=== PATIENT | female | born 1975 | race Caucasian/White ===

== ENCOUNTER 2016-07-29 18:57 | Emergency (ER) | payer OTHER ==
--- NOTE | 2016-07-29 20:07 | ED NURSING NOTES ---
Clinical Report - Nurses [facility] [address] [place] [address] 07/29/2016 19:00 Patient: NERY VALLE [facility]#: [id number] TRIAGE Triage time 19:Jul 29 2016. Acuity: LEVEL 4. Chief Complaint: LEFT UPPER EXTREMITY PAIN. Location of symptoms- (pt c/o pain to left ring finger and left elbow for a month, no known injury). Alert. No acute distress. ( reports pain "worse than labor"). SEPSIS SCREEN: Sepsis Screen: negative. Negative (no infection suspected/documented). ELSA COMA SCORE: Elsa Coma Scale: 15- eyes open spontaneously (4); best verbal response- oriented x 4 (5); best motor response- obeys commands (6). --19:16 Rajat Chi R.N. 19:07 07/29/16. BP: 123/69. HR: 71. RR: 17. O2 saturation: 100%. Temp: 97.9 F. Pain level now 01/30. --19:16 Rajat Chi R.N. Weight: 91.6 kg stated. Height/Length: 66 inches Per Patient. BMI: 32.6. --19:12 Rajat Chi R.N. Medications None. --19:09 Rajat Chi R.N. Allergies Clindamycin. --19:09 Rajat Chi R.N. History Arrived by private vehicle. Historian: patient. Accompanied by family. No injury occurred. Provoking / relieving factors: worsened by movement; relieved by rest. Treatment RN SPINE: None. ("I didn't know what to take"). PAST MEDICAL HX: Tetanus status: up-to-date. Immunizations: up-to-date. Last normal menstrual period- 2 weeks ago. SOCIAL HX: Never smoker. Alcohol use. (last drink 13 years ago). No infectious disease exposure. SELF HARM ASSESSMENT: A self harm assessment was performed. The patient answered "no" to the question "Have you recently felt down, depressed, or hopeless?", "Have you noticed less interest or pleasure in doing things?", "Do you have thoughts of harming or killing yourself?", "Are you here because you tried to hurt yourself?", "Have you ever tried to hurt yourself before today?", "Have you recently had thoughts about harming or killing others?" and "Do you have any dangerous items in your possession?". FALL RISK ASSESSMENT: Fall risk assessment completed. No fall risk identified. NUTRITIONAL RISK ASSESSMENT: The nutritional risk assessment revealed no deficiencies. FUNCTIONAL ASSESSMENT: Functional assessment: no impairments noted. LEARNING NEEDS ASSESSMENT: The learning needs assessment revealed no barriers. SKIN INTEGRITY ASSESSMENT: Skin integrity risk assessment completed. No skin integrity risk identified. --19:16 Rajat Chi R.N. PROBLEMS: Bronchitis. Palpitations. Vertigo. Asthma. --19:10 Rajat Chi R.N. ADDITIONAL SURGERIES: Abdominal Hernia Repair. Bilateral feet surgery . Bunion surgery. Cholecystectomy. . Dilatation & Curettage. Fracture Repair. Hernia Repair. Umbilical Hernia Repair. --19:15 Rajat Chi R.N. Interventions ID and allergy band on patient. To treatment room. --19:16 Rajat Chi R.N. PHYSICAL ASSESSMENT Ambulatory to room. Patient gowned. GENERAL / NEURO / PSYCH: Oriented X 4. Alert. Appears in no acute distress. EXTREMITIES: Neuro-vascular status intact to the extremity. No upper extremity edema. Left elbow: tenderness (pain x 1 month). Left hand: (pain to left ring finger, no known injury). SKIN: Skin intact. Skin is warm and dry. --19:18 Rajat Chi R.N. NURSING PROGRESS NOTES Patient gowned. Reassurance given. Two patient identifiers checked. Call light placed in reach. Side rails up x 1. Bed placed in lowest position. Brakes of bed on. --19:18 Rajat Chi R.N. ( MD with pt, waiting poc). --19:40 Rajat Chi R.N. Aluminum-foam finger splint applied to left ring finger by nurse (sling to left arm per MD). Splint applied. Sling applied to left arm by nurse; distal pulses intact and sensation intact. --20:07 Rajat Chi R.N. DISPOSITION / DISCHARGE Condition at departure: unchanged. The goals identified in the patient's plan of care were met. ( splint and sling in place,. pt educated on monitoring cap refill to fingers on affected hand.). No learning barriers present. Discharge instructions provided and reviewed with the patient. Reviewed medication(s) side effects and course information. Prescription(s) given to the patient. Reviewed splint care instructions. Activity restrictions reviewed (per MD). Patient verbalized understanding. Written instructions provided in Macedonian. The patient was discharged by the physician. She was discharged home and accompanied by family. She left the Emergency Department ambulatory and via private vehicle. Patient driving. ( pt dc home ambulatory to [facility], cap refill less than 2 seconds on affected hand, rx given). --20:14 Rajat Chi R.N. 20:11 07/29/16. BP: 118/71. HR: 68. RR: 17. O2 saturation: 100%. Temp: 98.0 F. Pain level now 10. --20:14 Rajat Chi R.N. Departure time: 20:12 Jul 29 2016. --20:14 Rajat Chi R.N. Locked/Released at 07/29/2016 20:15 by Rajat Chi R.N.
--- NOTE | 2016-07-29 20:07 | ED CLINICAL REPORT ---
Clinical Report - Physicians/Mid Levels [facility] [address] [place] [address] 07/29/2016 19:00 [id number] Time Seen: 19:06 Jul 29 2016. Arrived- By private vehicle. Historian- patient. CPT: ER phys charges level 3 (#446330). HISTORY OF PRESENT ILLNESS Chief Complaint: UPPER EXTREMITY PAIN and SWELLING. Severity is described as being moderate in degree. It has become recently worse. The quality is noted to be aching and "pain". 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 Symptoms located in the area of the left elbow and left hand. No chest pain, difficulty breathing, sensory loss, motor loss or repetitive hand use at work. She has had swelling, but not had redness. Patient notes the possibility of an injury. Mechanism of injury- (Heavy lifting of disabled child.). Similar symptoms previously: None. Recent medical care: Not recently seen/assessed. REVIEW OF SYSTEMS No fever, chills, headache, sore throat or skin rash. No enlarged lymph nodes, neck pain, abdominal pain, nausea or vomiting. All systems otherwise negative, except as recorded above. PAST HISTORY Bronchitis. Palpitations. Vertigo. Asthma. --19:10 Page-Rajat White R.N. ADDITIONAL SURGERIES: Abdominal Hernia Repair. Bilateral feet surgery . Bunion surgery. Cholecystectomy. . Dilatation & Curettage. Fracture Repair. Hernia Repair. Umbilical Hernia Repair. Medications: None. Allergies: Clindamycin. SOCIAL HISTORY Never smoker. No alcohol use or drug use. ADDITIONAL NOTES The nursing notes have been reviewed. PHYSICAL EXAM Vital Signs: 07/29/2016 19:07 BP: 123/69. HR: 71. RR: 17. O2 saturation: 100%. Temp: 97.9 F. Appearance: Alert. Patient in mild distress. Eyes: Eyes normal inspection. ENT: Pharynx normal. Neck: Normal inspection. Neck supple. CVS: Normal heart rate and rhythm. Respiratory: No respiratory distress. Back: Normal inspection. No tenderness. Skin: Skin intact. Skin warm. Normal skin color. Extremities: Left elbow: moderate tenderness located in the area of the medial epicondyle and medial elbow. Limited ROM secondary to pain (diminished flexion). Neurovascular intact distally. No swelling, abrasion, ecchymosis or deformity. No joint effusion. Left ring finger: moderate tenderness and swelling and medium sized ecchymosis of the PIP joint; limited movement secondary to pain (diminished flexion and extension). Neurovascular intact distally. Extremities otherwise negative. Neuro: Oriented X 3. No motor deficit. No sensory deficit. PROGRESS AND PROCEDURES Patient/family counseled. Disposition: Discharged. Condition: stable. CLINICAL IMPRESSION Left ring finger hematoma Left elbow strain. INSTRUCTIONS Wear simple sling for four days until better. Wear aluminum splint until better. No strenuous activity. Warnings: Further evaluation is necessary. GENERAL WARNINGS: Return or contact your physician immediately if your condition worsens or changes unexpectedly, if not improving as expected, or if other problems arise. Prescription Medications: Hydrocodone/APAP 5mg/325mg: take 1 to 2 orally every 6 hours as needed for pain. Dispense fifteen (15). No refills. OTC Medications: Take naproxen (Aleve) according to label instructions. Available over the counter. Follow-up: Follow up with your doctor in one week. Call for an appointment. Understanding of the discharge instructions verbalized by patient. (Electronically signed by Abdirizak Busch MD 07/30/2016 12:59)
--- NOTE | 2016-07-29 20:07 | ED CLINICAL REPORT ---
Clinical Report - Physicians/Mid Levels [facility] [address] [place] [address] 07/29/2016 19:00 [id number] Time Seen: 19:06 Jul 29 2016. Arrived- By private vehicle. Historian- patient. CPT: ER phys charges level 3 (#532993). HISTORY OF PRESENT ILLNESS Chief Complaint: UPPER EXTREMITY PAIN and SWELLING. Severity is described as being moderate in degree. It has become recently worse. The quality is noted to be aching and "pain". 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 Symptoms located in the area of the left elbow and left hand. No chest pain, difficulty breathing, sensory loss, motor loss or repetitive hand use at work. She has had swelling, but not had redness. Patient notes the possibility of an injury. Mechanism of injury- (Heavy lifting of disabled child.). Similar symptoms previously: None. Recent medical care: Not recently seen/assessed. REVIEW OF SYSTEMS No fever, chills, headache, sore throat or skin rash. No enlarged lymph nodes, neck pain, abdominal pain, nausea or vomiting. All systems otherwise negative, except as recorded above. PAST HISTORY Bronchitis. Palpitations. Vertigo. Asthma. --19:10 Page-Rajat White R.N. ADDITIONAL SURGERIES: Abdominal Hernia Repair. Bilateral feet surgery . Bunion surgery. Cholecystectomy. . Dilatation & Curettage. Fracture Repair. Hernia Repair. Umbilical Hernia Repair. Medications: None. Allergies: Clindamycin. SOCIAL HISTORY Never smoker. No alcohol use or drug use. ADDITIONAL NOTES The nursing notes have been reviewed. PHYSICAL EXAM Vital Signs: 07/29/2016 19:07 BP: 123/69. HR: 71. RR: 17. O2 saturation: 100%. Temp: 97.9 F. Appearance: Alert. Patient in mild distress. Eyes: Eyes normal inspection. ENT: Pharynx normal. Neck: Normal inspection. Neck supple. CVS: Normal heart rate and rhythm. Respiratory: No respiratory distress. Back: Normal inspection. No tenderness. Skin: Skin intact. Skin warm. Normal skin color. Extremities: Left elbow: moderate tenderness located in the area of the medial epicondyle and medial elbow. Limited ROM secondary to pain (diminished flexion). Neurovascular intact distally. No swelling, abrasion, ecchymosis or deformity. No joint effusion. Left ring finger: moderate tenderness and swelling and medium sized ecchymosis of the PIP joint; limited movement secondary to pain (diminished flexion and extension). Neurovascular intact distally. Extremities otherwise negative. Neuro: Oriented X 3. No motor deficit. No sensory deficit. PROGRESS AND PROCEDURES Patient/family counseled. Disposition: Discharged. Condition: stable. CLINICAL IMPRESSION Left ring finger hematoma Left elbow strain. INSTRUCTIONS Wear simple sling for four days until better. Wear aluminum splint until better. No strenuous activity. Warnings: Further evaluation is necessary. GENERAL WARNINGS: Return or contact your physician immediately if your condition worsens or changes unexpectedly, if not improving as expected, or if other problems arise. Prescription Medications: Hydrocodone/APAP 5mg/325mg: take 1 to 2 orally every 6 hours as needed for pain. Dispense fifteen (15). No refills. OTC Medications: Take naproxen (Aleve) according to label instructions. Available over the counter. Follow-up: Follow up with your doctor in one week. Call for an appointment. Understanding of the discharge instructions verbalized by patient. (Electronically signed by Abdirizak Busch MD 07/30/2016 12:59)
--- NOTE | 2016-07-29 20:07 | ED ORDER SUMMARY ---
..... Patient: [facility] VALLE [facility]: [id number] [address] [place] [address] 41y, F Registration Date/Time: 07/29/2016 ORDER SHEET Weight: 91.6 kg (stated) Allergies: Clindamycin GENERAL ORDERS: Splint (UE) (Left) (Metal / foam) (LRF) (19:39 07/29/2016 Brayden READ) (19:46 Toan Staton.N.) Sling - arm (19:40 07/29/2016 Brayden READ) (19:46 Toan Wilcox.) MEDICATION ORDERS: IV FLUIDS: ORDER SHEET NOTES: [Electronically signed by Rajat Chi R.N. (20:15 07/29/2016)] [Electronically signed by Abdirizak Busch MD (12:59 07/30/2016)] [Electronically locked/signed by Rajat Chi R.N. (20:15 07/29/2016)]
--- NOTE | 2016-07-29 20:07 | ED NURSING NOTES ---
Clinical Report - Nurses [facility] [address] [place] [address] 07/29/2016 19:00 [id number] Triage time 19:Jul 29 2016. Acuity: LEVEL 4. Chief Complaint: LEFT UPPER EXTREMITY PAIN. Location of symptoms- (pt c/o pain to left ring finger and left elbow for a month, no known injury). Alert. No acute distress. ( reports pain "worse than labor"). SEPSIS SCREEN: Sepsis Screen: negative. Negative (no infection suspected/documented). ELAS COMA SCORE: Elsa Coma Scale: 15- eyes open spontaneously (4); best verbal response- oriented x 4 (5); best motor response- obeys commands (6). --19:16 Rajat Chi R.N. 19:07 07/29/16. BP: 123/69. HR: 71. RR: 17. O2 saturation: 100%. Temp: 97.9 F. Pain level now 01/30. --19:16 Rajat Chi R.N. Weight: 91.6 kg stated. Height/Length: 66 inches Per Patient. BMI: 32.6. --19:12 Rajat Chi R.N. Medications None. --19:09 Rajat Chi R.N. Allergies Clindamycin. --19:09 Rajat Chi R.N. History Arrived by private vehicle. Historian: patient. Accompanied by family. No injury occurred. Provoking / relieving factors: worsened by movement; relieved by rest. Treatment STATION AGENT: None. ("I didn't know what to take"). PAST MEDICAL HX: Tetanus status: up-to-date. Immunizations: up-to-date. Last normal menstrual period- 2 weeks ago. SOCIAL HX: Never smoker. Alcohol use. (last drink 13 years ago). No infectious disease exposure. SELF HARM ASSESSMENT: A self harm assessment was performed. The patient answered "no" to the question "Have you recently felt down, depressed, or hopeless?", "Have you noticed less interest or pleasure in doing things?", "Do you have thoughts of harming or killing yourself?", "Are you here because you tried to hurt yourself?", "Have you ever tried to hurt yourself before today?", "Have you recently had thoughts about harming or killing others?" and "Do you have any dangerous items in your possession?". FALL RISK ASSESSMENT: Fall risk assessment completed. No fall risk identified. NUTRITIONAL RISK ASSESSMENT: The nutritional risk assessment revealed no deficiencies. FUNCTIONAL ASSESSMENT: Functional assessment: no impairments noted. LEARNING NEEDS ASSESSMENT: The learning needs assessment revealed no barriers. SKIN INTEGRITY ASSESSMENT: Skin integrity risk assessment completed. No skin integrity risk identified. --19:16 Rajat Chi R.N. PROBLEMS: Bronchitis. Palpitations. Vertigo. Asthma. --19:10 Rajat Chi R.N. ADDITIONAL SURGERIES: Abdominal Hernia Repair. Bilateral feet surgery . Bunion surgery. Cholecystectomy. . Dilatation & Curettage. Fracture Repair. Hernia Repair. Umbilical Hernia Repair. --19:15 Rajat Chi R.N. Interventions ID and allergy band on patient. To treatment room. --19:16 Rajat Chi R.N. PHYSICAL ASSESSMENT Ambulatory to room. Patient gowned. GENERAL / NEURO / PSYCH: Oriented X 4. Alert. Appears in no acute distress. EXTREMITIES: Neuro-vascular status intact to the extremity. No upper extremity edema. Left elbow: tenderness (pain x 1 month). Left hand: (pain to left ring finger, no known injury). SKIN: Skin intact. Skin is warm and dry. --19:18 Rajat Chi R.N. NURSING PROGRESS NOTES Patient gowned. Reassurance given. Two patient identifiers checked. Call light placed in reach. Side rails up x 1. Bed placed in lowest position. Brakes of bed on. --19:18 Rajat Chi R.N. ( MD with pt, waiting poc). --19:40 Rajat Chi R.N. Aluminum-foam finger splint applied to left ring finger by nurse (sling to left arm per MD). Splint applied. Sling applied to left arm by nurse; distal pulses intact and sensation intact. --20:07 Rajat Chi R.N. DISPOSITION / DISCHARGE Condition at departure: unchanged. The goals identified in the patient's plan of care were met. ( splint and sling in place,. pt educated on monitoring cap refill to fingers on affected hand.). No learning barriers present. Discharge instructions provided and reviewed with the patient. Reviewed medication(s) side effects and course information. Prescription(s) given to the patient. Reviewed splint care instructions. Activity restrictions reviewed (per MD). Patient verbalized understanding. Written instructions provided in Guamanian. The patient was discharged by the physician. She was discharged home and accompanied by family. She left the Emergency Department ambulatory and via private vehicle. Patient driving. ( pt dc home ambulatory to [facility], cap refill less than 2 seconds on affected hand, rx given). --20:14 Rajat Chi R.N. 20:11 07/29/16. BP: 118/71. HR: 68. RR: 17. O2 saturation: 100%. Temp: 98.0 F. Pain level now 10. --20:14 Rajat Chi R.N. Departure time: 20:12 Jul 29 2016. --20:14 Rajat Chi R.N. Locked/Released at 07/29/2016 20:15 by Rajat Chi R.N.
--- NOTE | 2016-07-29 20:07 | ED ORDER SUMMARY ---
..... Patient: NERY VALLE OrderSheet [facility] VisitID: [id number] [address] [place] [address] 41y, F Registration Date/Time: 07/29/2016 ORDER SHEET Weight: 91.6 kg (stated) Allergies: Clindamycin GENERAL ORDERS: Splint (UE) (Left) (Metal / foam) (LRF) (19:39 07/29/2016 Brayden READ) (19:46 Toan Staton.N.) Sling - arm (19:40 07/29/2016 Brayden READ) (19:46 Toan Wilcox.) MEDICATION ORDERS: IV FLUIDS: ORDER SHEET NOTES: [Electronically signed by Rajat Chi R.N. (20:15 07/29/2016)] [Electronically signed by Abdirizak Busch MD (12:59 07/30/2016)] [Electronically locked/signed by Rajat Chi R.N. (20:15 07/29/2016)]
--- NOTE | 2016-07-30 12:59 | ED MED RECONCILIATION SUMMARY ---
Patient: NERY VALLE Medication Reconciliation Report [facility] VisitID: [id number] [address] [place] [address] 41y, F Registration Date/Time: 07/29/2016 Weight: 91.6 kg Height/Length: 66 in. BMI: 32.6 ALLERGIES: Clindamycin The patient's Home Medications are listed below: NONE. The source(s) of the original Home Medication information: Not obtained. The following Medications were given to the patient in the Emergency Department: None. The following Medications were prescribed to the patient: Take naproxen (Aleve) according to label instructions. Available over the counter. -- Abdirizak Busch MD Hydrocodone/APAP 5mg/325mg: take 1 to 2 orally every 6 hours as needed for pain. Dispense fifteen (15). No refills. -- Abdirizak Busch MD
--- NOTE | 2016-07-30 12:59 | ED MAR SUMMARY ---
..... Medication Administration Record [facility] [address], [place] [id number] Patient: NERY VALLE Visit ID: [id number] 41y, F Weight: 91.6 kg Height/Length: 66 in BMI: 32.6 ALLERGIES: Clindamycin
--- NOTE | 2016-07-30 12:59 | ED MAR SUMMARY ---
..... Medication Administration Record [facility] [address] [place], [place] [id number] Patient: NERY VALLE Visit ID: [id number] 41y, F Weight: 91.6 kg Height/Length: 66 in BMI: 32.6 ALLERGIES: Clindamycin
--- NOTE | 2016-07-30 12:59 | ED DISCHARGE INSTRUCTIONS ---
Patient: NERY VALLE General Instructions VisitID: [id number] [place] [address] 41y, F Registration Date/Time: 07/29/2016 Left ring finger hematoma Left elbow strain. INSTRUCTIONS Wear simple sling for four days until better. Wear aluminum splint until better. No strenuous activity. Warnings: Further evaluation is necessary. GENERAL WARNINGS: Return or contact your physician immediately if your condition worsens or changes unexpectedly, if not improving as expected, or if other problems arise. Prescription Medications: Hydrocodone/APAP 5mg/325mg: take 1 to 2 orally every 6 hours as needed for pain. Dispense fifteen (15). No refills. OTC Medications: Take naproxen (Aleve) according to label instructions. Available over the counter. Follow-up: Follow up with your doctor in one week. Call for an appointment. Understanding of the discharge instructions verbalized by patient. ADDITIONAL INFORMATION Sling A sling is designed to support your arm in a position of rest. It is used for injuries of the hand, forearm, upper arm, and shoulder. A shoulder that is immobilized too long can become stiff and lose range of motion. Follow up with your doctor as advised and do not use the sling longer than directed. Home Use: Leave the sling in place as long as directed by your doctor. Unless told otherwise, you may remove it when bathing, dressing, and when you go to sleep. The sling is adjustable. If it becomes loose, adjust it so that your forearm is horizontal (level with the ground). Your hand should be level with the elbow. You have been given the following additional information: Sling No strenuous activity. (Electronically signed by Abdirizak Busch MD 07/30/2016 12:59)
--- NOTE | 2016-07-30 12:59 | ED MED RECONCILIATION SUMMARY ---
Patient: NERY VALLE Medication Reconciliation Report [facility] VisitID: [id number] [address] [place] [address] 41y, F Registration Date/Time: 07/29/2016 Weight: 91.6 kg Height/Length: 66 in. BMI: 32.6 ALLERGIES: Clindamycin The patient's Home Medications are listed below: NONE. The source(s) of the original Home Medication information: Not obtained. The following Medications were given to the patient in the Emergency Department: None. The following Medications were prescribed to the patient: Take naproxen (Aleve) according to label instructions. Available over the counter. -- Abdirizak Busch MD Hydrocodone/APAP 5mg/325mg: take 1 to 2 orally every 6 hours as needed for pain. Dispense fifteen (15). No refills. -- Abdirizak Busch MD
--- NOTE | 2016-07-30 12:59 | ED DISCHARGE INSTRUCTIONS ---
Patient: NERY VALLE General Instructions [facility] VisitID: [id number] [place] [address] 41y, F Registration Date/Time: 07/29/2016 Left ring finger hematoma Left elbow strain. INSTRUCTIONS Wear simple sling for four days until better. Wear aluminum splint until better. No strenuous activity. Warnings: Further evaluation is necessary. GENERAL WARNINGS: Return or contact your physician immediately if your condition worsens or changes unexpectedly, if not improving as expected, or if other problems arise. Prescription Medications: Hydrocodone/APAP 5mg/325mg: take 1 to 2 orally every 6 hours as needed for pain. Dispense fifteen (15). No refills. OTC Medications: Take naproxen (Aleve) according to label instructions. Available over the counter. Follow-up: Follow up with your doctor in one week. Call for an appointment. Understanding of the discharge instructions verbalized by patient. ADDITIONAL INFORMATION Sling A sling is designed to support your arm in a position of rest. It is used for injuries of the hand, forearm, upper arm, and shoulder. A shoulder that is immobilized too long can become stiff and lose range of motion. Follow up with your doctor as advised and do not use the sling longer than directed. Home Use: Leave the sling in place as long as directed by your doctor. Unless told otherwise, you may remove it when bathing, dressing, and when you go to sleep. The sling is adjustable. If it becomes loose, adjust it so that your forearm is horizontal (level with the ground). Your hand should be level with the elbow. You have been given the following additional information: Sling No strenuous activity. (Electronically signed by Abdirizak Busch MD 07/30/2016 12:59)
== END 2016-07-29 20:12 | disposition home or self-care (01) ==
LOC: ED SRH 18:57
DX: S53.402A Unspecified sprain of left elbow, initial encounter (principal); S60.042A Contusion of left ring finger without damage to nail, initial encounter; X50.0XXA Overexertion from strenuous movement or load, initial encounter; Y93.F2 Activity, caregiving, lifting; Z88.1 Allergy status to other antibiotic agents

== ENCOUNTER 2016-11-06 21:29 | Emergency (ER) | payer OTHER ==
--- NOTE | 2016-11-06 23:01 | ED ORDER SUMMARY ---
..... Patient: NERY VALLE OrderSheet [facility] VisitID: [id number] [address] [place] [address] 41y, F Registration Date/Time: 11/06/2016 ORDER SHEET Weight: 89.3 kg (stated) Allergies: Clindamycin, Erythromycin GENERAL ORDERS: MEDICATION ORDERS: Bactrim DS PO (Tablet 800-160 mg) 1 tab (NOW) (22:27 11/06/2016 EKoroleva P.A.-C) (Ack 22:29 JSanders R.N.) (22:33 JSanders R.N.) Keflex PO 500 mg (NOW) (22:28 11/06/2016 EKoroleva P.A.-C) (Ack 22:29 JSanders R.N.) (22:34 JSanders R.N.) Motrin PO 800 mg (NOW) (22:28 11/06/2016 EKoroleva P.A.-C) (Ack 22:29 JSanders R.N.) (22:34 JSanders R.N.) IV FLUIDS: ORDER SHEET NOTES: [Electronically signed by Lindsay Julio R.N. (23:07 11/06/2016)] [Electronically signed by Tanya Aguirre P.A.-C (13:24 11/07/2016)] [Electronically locked/signed by Lindsay Julio R.N. (23:07 11/06/2016)]
--- NOTE | 2016-11-06 23:01 | ED ORDER SUMMARY ---
..... Patient: NERY VALLE OrderSheet [facility] VisitID: [id number] [address] [place] [address] 41y, F Registration Date/Time: 11/06/2016 ORDER SHEET Weight: 89.3 kg (stated) Allergies: Clindamycin, Erythromycin GENERAL ORDERS: MEDICATION ORDERS: Bactrim DS PO (Tablet 800-160 mg) 1 tab (NOW) (22:27 11/06/2016 EKoroleva P.A.-C) (Ack 22:29 JSanders R.N.) (22:33 JSanders R.N.) Keflex PO 500 mg (NOW) (22:28 11/06/2016 EKoroleva P.A.-C) (Ack 22:29 JSanders R.N.) (22:34 JSanders R.N.) Motrin PO 800 mg (NOW) (22:28 11/06/2016 EKoroleva P.A.-C) (Ack 22:29 JSanders R.N.) (22:34 JSanders R.N.) IV FLUIDS: ORDER SHEET NOTES: [Electronically signed by Lindsay Julio R.N. (23:07 11/06/2016)] [Electronically signed by Tanya Aguirre P.A.-C (13:24 11/07/2016)] [Electronically locked/signed by Lindsay Julio R.N. (23:07 11/06/2016)]
--- NOTE | 2016-11-06 23:01 | ED CLINICAL REPORT ---
Clinical Report - Physicians/Mid Levels [facility] [address] [place] [address] 11/06/2016 21:33 Patient: NERY VALLE Time Seen: 2227. Arrived- By private vehicle. HISTORY OF PRESENT ILLNESS Chief Complaint: LESION. This started 2 - [address] and is still present. It is described as painful. It has been located on the right upper extremity. (patient with right elbow pain and swelling over last 3-4 days. Recently outside, possible insect bites. No drainage. Denies any trauma. Denies any fevers or chills. Denies any pain or difficulty with movement of the right elbow.). REVIEW OF SYSTEMS No chest pain. All systems otherwise negative, except as recorded above. PAST HISTORY Problems: Bronchitis. Ovarian Cyst. Constipation. Abdominal Pain. Leukocytosis. Allergic Reaction. Threatened . Headache. Flank Pain. Palpitations. Back Pain. Environmental Allergies. Dysfunctional Uterine Bleeding. Vertigo. Pharyngitis. Myofascial Strain. Abscess. Staph Infections. Vaginal Bleeding. Anxiety Reaction. Asthma. Neck Pain. Sinusitis. UTI - Urinary Tract Infection. Immunizations. LNMP - Last Normal Menstrual Period. . Additional Surgeries: Abdominal Hernia Repair. Bilateral feet surgery . Bunion surgery. Cholecystectomy. . Dilatation & Curettage. Fracture Repair. Hernia Repair. Umbilical Hernia Repair. Medications: Benadryl Oral, PRN, vertigo. Vitamins Oral. Allergies: Clindamycin. Erythromycin. SOCIAL HISTORY Never smoker. No alcohol use or drug use. PHYSICAL EXAM Appearance: Alert. CVS: Normal heart rate and rhythm. Skin: Skin warm. Erythema. Cellulitis (right latearl elbow, full rom, no fluctulance, no lymphagetic streak). Extremities: Normal external inspection. No upper extremity edema. Extremities nontender. PROGRESS AND PROCEDURES Course of Care: patient was signs of erythema. No abscess. Fungitic streaking afebrile. No history of MRSA. No trauma. Good distal sensation and neurovascular. Patient is stable. Patient/family counseled. Disposition: Discharged. Condition: good. CLINICAL IMPRESSION Cellulitis of the right elbow. INSTRUCTIONS (warm packs follow up with primary care dr in 2-3 days). Prescription Medications: Bactrim DS 800 mg / 160 mg: take 1 tablet orally every 12 hours for 10 days. No refill. Substitution is permissible. Keflex 500 mg: take 1 capsule orally for 10 days. Substitution is permissible. (Electronically signed by Tanya Aguirre P.A.-C 11/07/2016 13:24)
--- NOTE | 2016-11-06 23:01 | ED CLINICAL REPORT ---
Clinical Report - Physicians/Mid Levels [facility] [address] [place] [address] 11/06/2016 21:33 Patient: NERY VALLE Time Seen: 2227. Arrived- By private vehicle. HISTORY OF PRESENT ILLNESS Chief Complaint: LESION. 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 It is described as painful. It has been located on the right upper extremity. (patient with right elbow pain and swelling over last 3-4 days. Recently outside, possible insect bites. No drainage. Denies any trauma. Denies any fevers or chills. Denies any pain or difficulty with movement of the right elbow.). REVIEW OF SYSTEMS No chest pain. All systems otherwise negative, except as recorded above. PAST HISTORY Problems: Bronchitis. Ovarian Cyst. Constipation. Abdominal Pain. Leukocytosis. Allergic Reaction. Threatened . Headache. Flank Pain. Palpitations. Back Pain. Environmental Allergies. Dysfunctional Uterine Bleeding. Vertigo. Pharyngitis. Myofascial Strain. Abscess. Staph Infections. Vaginal Bleeding. Anxiety Reaction. Asthma. Neck Pain. Sinusitis. UTI - Urinary Tract Infection. Immunizations. LNMP - Last Normal Menstrual Period. . Additional Surgeries: Abdominal Hernia Repair. Bilateral feet surgery . Bunion surgery. Cholecystectomy. . Dilatation & Curettage. Fracture Repair. Hernia Repair. Umbilical Hernia Repair. Medications: Benadryl Oral, PRN, vertigo. Vitamins Oral. Allergies: Clindamycin. Erythromycin. SOCIAL HISTORY Never smoker. No alcohol use or drug use. PHYSICAL EXAM Appearance: Alert. CVS: Normal heart rate and rhythm. Skin: Skin warm. Erythema. Cellulitis (right latearl elbow, full rom, no fluctulance, no lymphagetic streak). Extremities: Normal external inspection. No upper extremity edema. Extremities nontender. PROGRESS AND PROCEDURES Course of Care: patient was signs of erythema. No abscess. Fungitic streaking afebrile. No history of MRSA. No trauma. Good distal sensation and neurovascular. Patient is stable. Patient/family counseled. Disposition: Discharged. Condition: good. CLINICAL IMPRESSION Cellulitis of the right elbow. INSTRUCTIONS (warm packs follow up with primary care dr in 2-3 days). Prescription Medications: Bactrim DS 800 mg / 160 mg: take 1 tablet orally every 12 hours for 10 days. No refill. Substitution is permissible. Keflex 500 mg: take 1 capsule orally for 10 days. Substitution is permissible. (Electronically signed by Tanya Aguirre P.A.-C 11/07/2016 13:24)
--- NOTE | 2016-11-06 23:01 | ED NURSING NOTES ---
Clinical Report - Nurses [facility] [address] [place] [address] 11/06/2016 21:33 Patient: NERY VALLE TRIAGE Triage time 21:49. Acuity: LEVEL 4. Chief Complaint: (swelling and pain on right elbow.). Alert. No acute distress. --21:55 Lindsay Julio R.N. 21:49 11/06/16. BP: 110/66. HR: 60. RR: 16. O2 saturation: 100%. Temp: 98.1 F (oral). Higuera-Beltre pain scale: 4/10. --21:55 Lindsay Julio R.N. Weight: 89.3 kg stated. Height/Length: 66 inches Per Patient. BMI: 31.8. --21:49 Lindsay Julio R.N. Medications Vitamins Oral. --21:52 Lindsay Julio R.N. Benadryl Oral, PRN, vertigo. --21:53 Lindsay Julio R.N. Allergies Clindamycin. --21:51 Lindsay Julio R.N. Erythromycin. --21:52 Lindsay Julio R.N. History Arrived by private vehicle. Historian: patient. Accompanied by (3 children). This started today. PAST MEDICAL HX: Has not received DTaP immunization. SOCIAL HX: Never smoker. No alcohol use or drug use. NUTRITIONAL RISK ASSESSMENT: The nutritional risk assessment revealed no deficiencies. FUNCTIONAL ASSESSMENT: Functional assessment: no impairments noted. --21:55 Lindsay Julio R.N. PROBLEMS: Bronchitis. Ovarian Cyst. Headache. Palpitations. Vertigo. Pharyngitis. Abscess. Staph Infections. Anxiety Reaction. Asthma. Sinusitis. --21:54 Lindsay Julio R.N. ADDITIONAL SURGERIES: Abdominal Hernia Repair. Bilateral feet surgery . Bunion surgery. Cholecystectomy. . Dilatation & Curettage. Fracture Repair. Hernia Repair. Umbilical Hernia Repair. --21:54 Lindsay Julio R.N. Interventions ID band on patient. To treatment room. --21:55 Lindsay Julio R.N. PHYSICAL ASSESSMENT Ambulatory to room. GENERAL / NEURO / PSYCH: Alert. Oriented X 4. Appears in no acute distress. HEENT: Mucous membranes are pink. RESPIRATORY: Respirations not labored. CVS: Capillary refill less than 2 seconds. SKIN: Skin is warm and dry. --21:56 Lindsay Julio R.N. NURSING PROGRESS NOTES Head of bed elevated. Two patient identifiers checked. Call light placed in reach. Side rails up x 1. Bed placed in lowest position. Brakes of bed on. --21:56 Lindsay Julio R.N. Patient ready for evaluation- chart flagged. --21:56 Lindsay Julio R.N. 22:33 11/06/2016 Bactrim DS (Sulfamethoxazole-TMP DS) PO Tablets 1 tab given. Allergies verified and confirmed 5 rights. --22:33 Laura Jenkins R.N. 22:34 11/06/2016 Keflex (Cephalexin) PO Capsules 500 mg given. Allergies verified and confirmed 5 rights. --22:34 Laura Jenkins R.N. 22:34 11/06/2016 Motrin PO Tablets 800 mg given. Allergies verified and confirmed 5 rights. --22:34 Laura Jenkins R.N. DISPOSITION / DISCHARGE Condition at departure: stable. No learning barriers present. Discharge instructions provided and reviewed with the patient. Reviewed medication(s) side effects, precautions, dosing and course information. Prescription(s) given to the patient. Patient verbalized understanding. Written instructions provided in Cambodian. The patient was discharged home. She left the Emergency Department ambulatory and via private vehicle. Parent driving. --23:07 Lindsay Julio R.N. 23:05 11/06/16. BP: deferred. HR: deferred. RR: 15 (regular and unlabored). O2 saturation: deferred. Temp: deferred. Pain level now: 0/10. --23:07 Lindsay Julio R.N. Locked/Released at 11/06/2016 23:07 by Lindsay Julio R.N.
--- NOTE | 2016-11-07 13:25 | ED MED RECONCILIATION SUMMARY ---
Patient: NERY VALLE Medication Reconciliation Report [facility] VisitID: [id number] [address] [place] [address] 41y, F Registration Date/Time: 11/06/2016 Weight: 89.3 kg Height/Length: 66 in. BMI: 31.8 ALLERGIES: Clindamycin, Erythromycin The patient's Home Medications are listed below: THE FOLLOWING MEDICATIONS NEED TO BE RECONCILED: Benadryl Oral, PRN, vertigo Vitamins Oral The source(s) of the original Home Medication information: Not obtained. The following Medications were given to the patient in the Emergency Department: Bactrim DS [PO] PO 1 tab, administered: 11/06/2016 10:33:00 PM Keflex [PO] PO 500 mg, administered: 11/06/2016 10:34:00 PM Motrin [PO] PO 800 mg, administered: 11/06/2016 10:34:00 PM The following Medications were prescribed to the patient: Bactrim DS 800 mg / 160 mg: take 1 tablet orally every 12 hours for 10 days. No refill. Substitution is permissible. -- Tanya Aguirre, P.A.-Leta Keflex 500 mg: take 1 capsule orally for 10 days. Substitution is permissible. -- Tanya Aguirre, P.A.-C
--- NOTE | 2016-11-07 13:25 | ED DISCHARGE INSTRUCTIONS ---
Patient: NERY VALLE General Instructions [facility] VisitID: [id number] [address] [place] [address] 41y, F Registration Date/Time: 11/06/2016 Cellulitis of the right elbow. INSTRUCTIONS (warm packs follow up with primary care dr in 2-3 days). Prescription Medications: Bactrim DS 800 mg / 160 mg: take 1 tablet orally every 12 hours for 10 days. No refill. Substitution is permissible. Keflex 500 mg: take 1 capsule orally for 10 days. Substitution is permissible. ADDITIONAL INFORMATION Cellulitis You have an infection of the skin known as cellulitis. This usually starts with a scrape, cut, insect bite, blister or other opening in the skin which becomes infected. This is a serious condition. It must be watched closely to be sure the infection is not spreading. With antibiotic treatment, the size of the red area will gradually shrink in size until the skin returns to normal. This will take 7-10 days. The red area should never increase in size once the antibiotic medicine has been started. Occasionally, an infection will be resistant to one antibiotic and another one will have to be used. Home Care: 1) Limit the use of the affected part, since excess movement can cause the infection to spread. 2) If the infection is on your leg, walk as little as possible during the first few days of the treatment. Keep your leg elevated while sitting. This will reduce swelling. 3) Take all of the antibiotic medicine exactly as directed until it is gone. Be careful not to miss any doses, especially during the first seven days. Follow Up with your doctor or this facility as directed. Check the infected area daily for the warning signs listed below. Get Prompt Medical Attention if any of the following occur: -- Spreading area of redness -- Increasing swelling or pain -- Appearance of pus or drainage -- Fever over 100.4 F (38.0 C) oral, or over 101.4 F (38.6 C) rectal, after two days on antibiotics Sulfamethoxazole, Trimethoprim Oral tablet What is this medicine? SULFAMETHOXAZOLE; TRIMETHOPRIM or SMX-TMP (suhl fuh meth OK carly zohl; trye METH oh prim) is a combination of a sulfonamide antibiotic and a second antibiotic, trimethoprim. It is used to treat or prevent certain kinds of bacterial infections. It will not work for colds, flu, or other viral infections. How should I use this medicine? Take this medicine by mouth with a full glass of water. Follow the directions on the prescription label. Take your medicine at regular intervals. Do not take it more often than directed. Do not skip doses or stop your medicine early. Talk to your manifold builder regarding the use of this medicine in children. Special care may be needed. This medicine has been used in children as young as 2 months of age. What side effects may I notice from receiving this medicine? Side effects that you should report to your doctor or health career resource technician as soon as possible: allergic reactions like skin rash or hives, swelling of the face, lips, or tongue breathing problems fever or chills, sore throat irregular heartbeat, chest pain joint or muscle pain pain or difficulty passing urine red pinpoint spots on skin redness, blistering, peeling or loosening of the skin, including inside the mouth unusual bleeding or bruising unusually weak or tired yellowing of the eyes or skin Side effects that usually do not require medical attention (report to your doctor or health career resource technician if they continue or are bothersome): diarrhea dizziness headache loss of appetite nausea, vomiting nervousness What may interact with this medicine? Do not take this medicine with any of the following medications: aminobenzoate potassium dofetilide metronidazole This medicine may also interact with the following medications: YARELY inhibitors like benazepril, enalapril, lisinopril, and ramipril cyclosporine digoxin diuretics indomethacin medicines for diabetes methenamine methotrexate phenytoin potassium supplements pyrimethamine sulfinpyrazone tricyclic antidepressants warfarin What if I miss a dose? If you miss a dose, take it as soon as you can. If it is almost time for your next dose, take only that dose. Do not take double or extra doses. Where should I keep my medicine? Keep out of the reach of children. Store at room temperature between 20 to 25 degrees C (68 to 77 degrees F). Protect from light. Throw away any unused medicine after the expiration date. What should I tell my health care provider before I take this medicine? They need to know if you have any of these conditions: anemia asthma being treated with anticonvulsants if you frequently drink alcohol containing drinks kidney disease liver disease low level of folic acid or [id number] dehydrogenase poor nutrition or malabsorption porphyria severe allergies thyroid disorder an unusual or allergic reaction to sulfamethoxazole, trimethoprim, sulfa drugs, other medicines, foods, dyes, or preservatives or trying to get breast-feeding What should I watch for while using this medicine? Tell your doctor or health career resource technician if your symptoms do not improve. Drink several glasses of water a day to reduce the risk of kidney problems. Do not treat diarrhea with over the counter products. Contact your doctor if you have diarrhea that lasts more than 2 days or if it is severe and watery. This medicine can make you more sensitive to the sun. Keep out of the sun. If you cannot avoid being in the sun, wear protective clothing and use a sunscreen. Do not use sun lamps or tanning beds/booths. Cephalexin Monohydrate Oral tablet What is this medicine? CEPHALEXIN (sef a MEAGAN in) is a cephalosporin antibiotic. It is used to treat certain kinds of bacterial infections It will not work for colds, flu, or other viral infections. How should I use this medicine? Take this medicine by mouth with a full glass of water. Follow the directions on the prescription label. This medicine can be taken with or without food. Take your medicine at regular intervals. Do not take your medicine more often than directed. Take all of your medicine as directed even if you think you are better. Do not skip doses or stop your medicine early. Talk to your manifold builder regarding the use of this medicine in children. While this drug may be prescribed for selected conditions, precautions do apply. What side effects may I notice from receiving this medicine? Side effects that you should report to your doctor or health career resource technician as soon as possible: allergic reactions like skin rash, itching or hives, swelling of the face, lips, or tongue breathing problems pain or trouble passing urine redness, blistering, peeling or loosening of the skin, including inside the mouth severe or watery diarrhea unusually weak or tired yellowing of the eyes, skin Side effects that usually do not require medical attention (report to your doctor or health career resource technician if they continue or are bothersome): gas or heartburn genital or anal irritation headache joint or muscle pain nausea, vomiting What may interact with this medicine? probenecid some other antibiotics What if I miss a dose? If you miss a dose, take it as soon as you can. If it is almost time for your next dose, take only that dose. Do not take double or extra doses. There should be at least 4 to 6 hours between doses. Where should I keep my medicine? Keep out of the reach of children. Store at room temperature between 59 and 86 degrees F (15 and 30 degrees C). Throw away any unused medicine after the expiration date. What should I tell my health care provider before I take this medicine? They need to know if you have any of these conditions: kidney disease stomach or intestine problems, especially colitis an unusual or allergic reaction to cephalexin, other cephalosporins, penicillins, other antibiotics, medicines, foods, dyes or preservatives or trying to get breast-feeding What should I watch for while using this medicine? Tell your doctor or health career resource technician if your symptoms do not begin to improve in a few days. Do not treat diarrhea with over the counter products. Contact your doctor if you have diarrhea that lasts more than 2 days or if it is severe and watery. If you have diabetes, you may get a false-positive result for sugar in your urine. Check with your doctor or health career resource technician. You have been given the following additional information: Cellulitis Sulfamethoxazole, Trimethoprim Oral tablet Cephalexin Monohydrate Oral tablet (Electronically signed by Tanya Aguirre P.A.-C 11/07/2016 13:24)
--- NOTE | 2016-11-07 13:25 | ED MED RECONCILIATION SUMMARY ---
Patient: NERY VALLE Medication Reconciliation Report [facility] VisitID: [id number] [address] [place] [address] 41y, F Registration Date/Time: 11/06/2016 Weight: 89.3 kg Height/Length: 66 in. BMI: 31.8 ALLERGIES: Clindamycin, Erythromycin The patient's Home Medications are listed below: THE FOLLOWING MEDICATIONS NEED TO BE RECONCILED: Benadryl Oral, PRN, vertigo Vitamins Oral The source(s) of the original Home Medication information: Not obtained. The following Medications were given to the patient in the Emergency Department: Bactrim DS [PO] PO 1 tab, administered: 11/06/2016 10:33:00 PM Keflex [PO] PO 500 mg, administered: 11/06/2016 10:34:00 PM Motrin [PO] PO 800 mg, administered: 11/06/2016 10:34:00 PM The following Medications were prescribed to the patient: Bactrim DS 800 mg / 160 mg: take 1 tablet orally every 12 hours for 10 days. No refill. Substitution is permissible. -- Tanya Aguirre, P.A.-Leta Keflex 500 mg: take 1 capsule orally for 10 days. Substitution is permissible. -- Tanya Aguirre, P.A.-C
--- NOTE | 2016-11-07 13:25 | ED DISCHARGE INSTRUCTIONS ---
Patient: NERY VALLE General Instructions [facility] VisitID: [id number] [address] [place] [address] 41y, F Registration Date/Time: 11/06/2016 Cellulitis of the right elbow. INSTRUCTIONS (warm packs follow up with primary care dr in 2-3 days). Prescription Medications: Bactrim DS 800 mg / 160 mg: take 1 tablet orally every 12 hours for 10 days. No refill. Substitution is permissible. Keflex 500 mg: take 1 capsule orally for 10 days. Substitution is permissible. ADDITIONAL INFORMATION Cellulitis You have an infection of the skin known as cellulitis. This usually starts with a scrape, cut, insect bite, blister or other opening in the skin which becomes infected. This is a serious condition. It must be watched closely to be sure the infection is not spreading. With antibiotic treatment, the size of the red area will gradually shrink in size until the skin returns to normal. This will take 7-10 days. The red area should never increase in size once the antibiotic medicine has been started. Occasionally, an infection will be resistant to one antibiotic and another one will have to be used. Home Care: 1) Limit the use of the affected part, since excess movement can cause the infection to spread. 2) If the infection is on your leg, walk as little as possible during the first few days of the treatment. Keep your leg elevated while sitting. This will reduce swelling. 3) Take all of the antibiotic medicine exactly as directed until it is gone. Be careful not to miss any doses, especially during the first seven days. Follow Up with your doctor or this facility as directed. Check the infected area daily for the warning signs listed below. Get Prompt Medical Attention if any of the following occur: -- Spreading area of redness -- Increasing swelling or pain -- Appearance of pus or drainage -- Fever over 100.4 F (38.0 C) oral, or over 101.4 F (38.6 C) rectal, after two days on antibiotics Sulfamethoxazole, Trimethoprim Oral tablet What is this medicine? SULFAMETHOXAZOLE; TRIMETHOPRIM or SMX-TMP (suhl fuh meth OK carly zohl; trye METH oh prim) is a combination of a sulfonamide antibiotic and a second antibiotic, trimethoprim. It is used to treat or prevent certain kinds of bacterial infections. It will not work for colds, flu, or other viral infections. How should I use this medicine? Take this medicine by mouth with a full glass of water. Follow the directions on the prescription label. Take your medicine at regular intervals. Do not take it more often than directed. Do not skip doses or stop your medicine early. Talk to your program manager transportation regarding the use of this medicine in children. Special care may be needed. This medicine has been used in children as young as 2 months of age. What side effects may I notice from receiving this medicine? Side effects that you should report to your doctor or health senior care provider as soon as possible: allergic reactions like skin rash or hives, swelling of the face, lips, or tongue breathing problems fever or chills, sore throat irregular heartbeat, chest pain joint or muscle pain pain or difficulty passing urine red pinpoint spots on skin redness, blistering, peeling or loosening of the skin, including inside the mouth unusual bleeding or bruising unusually weak or tired yellowing of the eyes or skin Side effects that usually do not require medical attention (report to your doctor or health senior care provider if they continue or are bothersome): diarrhea dizziness headache loss of appetite nausea, vomiting nervousness What may interact with this medicine? Do not take this medicine with any of the following medications: aminobenzoate potassium dofetilide metronidazole This medicine may also interact with the following medications: YARELY inhibitors like benazepril, enalapril, lisinopril, and ramipril cyclosporine digoxin diuretics indomethacin medicines for diabetes methenamine methotrexate phenytoin potassium supplements pyrimethamine sulfinpyrazone tricyclic antidepressants warfarin What if I miss a dose? If you miss a dose, take it as soon as you can. If it is almost time for your next dose, take only that dose. Do not take double or extra doses. Where should I keep my medicine? Keep out of the reach of children. Store at room temperature between 20 to 25 degrees C (68 to 77 degrees F). Protect from light. Throw away any unused medicine after the expiration date. What should I tell my health care provider before I take this medicine? They need to know if you have any of these conditions: anemia asthma being treated with anticonvulsants if you frequently drink alcohol containing drinks kidney disease liver disease low level of folic acid or [id number] dehydrogenase poor nutrition or malabsorption porphyria severe allergies thyroid disorder an unusual or allergic reaction to sulfamethoxazole, trimethoprim, sulfa drugs, other medicines, foods, dyes, or preservatives or trying to get breast-feeding What should I watch for while using this medicine? Tell your doctor or health senior care provider if your symptoms do not improve. Drink several glasses of water a day to reduce the risk of kidney problems. Do not treat diarrhea with over the counter products. Contact your doctor if you have diarrhea that lasts more than 2 days or if it is severe and watery. This medicine can make you more sensitive to the sun. Keep out of the sun. If you cannot avoid being in the sun, wear protective clothing and use a sunscreen. Do not use sun lamps or tanning beds/booths. Cephalexin Monohydrate Oral tablet What is this medicine? CEPHALEXIN (sef a MEAGAN in) is a cephalosporin antibiotic. It is used to treat certain kinds of bacterial infections It will not work for colds, flu, or other viral infections. How should I use this medicine? Take this medicine by mouth with a full glass of water. Follow the directions on the prescription label. This medicine can be taken with or without food. Take your medicine at regular intervals. Do not take your medicine more often than directed. Take all of your medicine as directed even if you think you are better. Do not skip doses or stop your medicine early. Talk to your program manager transportation regarding the use of this medicine in children. While this drug may be prescribed for selected conditions, precautions do apply. What side effects may I notice from receiving this medicine? Side effects that you should report to your doctor or health senior care provider as soon as possible: allergic reactions like skin rash, itching or hives, swelling of the face, lips, or tongue breathing problems pain or trouble passing urine redness, blistering, peeling or loosening of the skin, including inside the mouth severe or watery diarrhea unusually weak or tired yellowing of the eyes, skin Side effects that usually do not require medical attention (report to your doctor or health senior care provider if they continue or are bothersome): gas or heartburn genital or anal irritation headache joint or muscle pain nausea, vomiting What may interact with this medicine? probenecid some other antibiotics What if I miss a dose? If you miss a dose, take it as soon as you can. If it is almost time for your next dose, take only that dose. Do not take double or extra doses. There should be at least 4 to 6 hours between doses. Where should I keep my medicine? Keep out of the reach of children. Store at room temperature between 59 and 86 degrees F (15 and 30 degrees C). Throw away any unused medicine after the expiration date. What should I tell my health care provider before I take this medicine? They need to know if you have any of these conditions: kidney disease stomach or intestine problems, especially colitis an unusual or allergic reaction to cephalexin, other cephalosporins, penicillins, other antibiotics, medicines, foods, dyes or preservatives or trying to get breast-feeding What should I watch for while using this medicine? Tell your doctor or health senior care provider if your symptoms do not begin to improve in a few days. Do not treat diarrhea with over the counter products. Contact your doctor if you have diarrhea that lasts more than 2 days or if it is severe and watery. If you have diabetes, you may get a false-positive result for sugar in your urine. Check with your doctor or health senior care provider. You have been given the following additional information: Cellulitis Sulfamethoxazole, Trimethoprim Oral tablet Cephalexin Monohydrate Oral tablet (Electronically signed by Tanya Aguirre P.A.-C 11/07/2016 13:24)
--- NOTE | 2016-11-07 13:25 | ED MAR SUMMARY ---
..... Medication Administration Record [facility] [address] [place] [address] Patient: NERY VALLE Visit ID: [id number] 41y, F Weight: 89.3 kg Height/Length: 66 in BMI: 31.8 ALLERGIES: Erythromycin, Clindamycin Given 22:11/06/2016 Laura Jenkins R.N. Medication Administered: BACTRIM DS [PO] (SULFAMETHOXAZOLE-TMP DS), Dose: 1 tab Tablets PO. Medication Ordered: Bactrim DS PO (Tablet 800-160 mg) 1 tab (NOW). Given 22:11/06/2016 Laura Jenkins R.N. Medication Administered: KEFLEX [PO] (CEPHALEXIN), Dose: 500 mg Capsules PO. Medication Ordered: Keflex PO 500 mg (NOW). Given :11/06/2016 Laura Jenkins R.N. Medication Administered: MOTRIN [PO], Dose: 800 mg Tablets PO. Medication Ordered: Motrin PO 800 mg (NOW).
--- NOTE | 2016-11-07 13:25 | ED MAR SUMMARY ---
..... Medication Administration Record [facility] [address] [place] [address] Patient: NERY VALLE Visit ID: [id number] 41y, F Weight: 89.3 kg Height/Length: 66 in BMI: 31.8 ALLERGIES: Erythromycin, Clindamycin Given 22:11/06/2016 Laura Jenkins R.N. Medication Administered: BACTRIM DS [PO] (SULFAMETHOXAZOLE-TMP DS), Dose: 1 tab Tablets PO. Medication Ordered: Bactrim DS PO (Tablet 800-160 mg) 1 tab (NOW). Given 22:11/06/2016 Laura Jenkins R.N. Medication Administered: KEFLEX [PO] (CEPHALEXIN), Dose: 500 mg Capsules PO. Medication Ordered: Keflex PO 500 mg (NOW). Given :11/06/2016 Laura Jenkins R.N. Medication Administered: MOTRIN [PO], Dose: 800 mg Tablets PO. Medication Ordered: Motrin PO 800 mg (NOW).
== END 2016-11-06 23:05 | disposition home or self-care (01) ==
LOC: ED SRH 21:29
DX: L03.113 Cellulitis of right upper limb (principal); Z88.0 Allergy status to penicillin